=== PATIENT | female | born 1965 | race Caucasian/White ===

== ENCOUNTER 2023-08-11 22:45 | Emergency (ER) | payer OTHER, SELFPAY ==
[2023-08-11 22:47] VITALS: BP 145/82
--- NOTE | 2023-08-11 23:21 | ED.GENMED ---
History of Present Illness
General
Chief Complaint: Skin Problem
Source: patient
Exam Limitations: none
Time Seen by Provider: 08/11/23 23:13
Travel History
Have you had any contact with someone who has COVID-19?: No
Do you have any symptoms of coronavirus? Fever > 100 degrees, chills, cough, shortness of breath, sore throat, loss of taste or smell, muscle aches, or headache?: No
History of Present Illness
History of Present Illness:
57-year-old female with a rash that started this morning. Mostly arms trunk and back. Nonpruritic. No fever chills nonpainful. Patient was on antibiotics that she finished a few weeks ago for a bronchitis. She had a chest x-ray during this.
That was negative. She has no shortness of breath trouble breathing or swallowing currently.
Past History
Past History
ED Past Medical History: HTN, Other (Seasonal allergies) and Other (Possible COPD)
ED Past Surgical History: Other (Dental surgery)
Social History
Tobacco: Former smoker
Alcohol: None
Drug: None
Personal: Single
Living: with family
Employment: Employed
Family History
Family History: Other (Noncontributory)
Review of Systems
Review of Systems
All Other Systems: Not applicable
Constitutional: Denies fever
Respiratory: Reports cough; Denies trouble breathing
Phy Exam
Physical Exam
Physical Exam:
GENERAL: Alert and oriented in no apparent distress
EYE: Orbits normal.
NECK: Supple
ENT: Speech normal
CARDIAC: Regular rate and rhythm without any obvious murmurs.
LUNGS: Clear breath sounds,normal
NEUROLOGICAL: Alert and oriented , grossly non-focal
SKIN: Warm and dry, discrete mostly macular rash 5 to 1 cm in area of the arms chest and back. Blanching. No petechia or purpura.
MUSCULOSKELETAL: No edema,no deformity.Good color
PSYCH: Normal and appropriate interaction.
Course
Orders/Labs/Results
Orders:
Orders
08/11/23 23:20
Prednisone [Deltasone] 50 mg PO NOW STA
Vital Signs
Initial and Last Documented VS:
Initial Vital Signs
Temp Pulse Resp BP Pulse Ox
97.8 F 88 24 145/82 97
08/11/23 22:47 08/11/23 22:47 08/11/23 22:47 08/11/23 22:47 08/11/23 22:47
Last Documented Vital Signs
Temp Pulse Resp BP Pulse Ox
97.8 F 88 24 145/82 97
08/11/23 22:47 08/11/23 22:47 08/11/23 22:47 08/11/23 22:47 08/11/23 22:47
MDM/Problems Addressed
Differential Diagnosis Includes:
I am not convinced this is true hives. It does appear to be a possible drug rash or possible allergic rash. Patient is in no distress. No acute infectious issues. Will do a course of prednisone to follow-up. As for her cough this has been an
ongoing issue for months. Her lungs are clear she is in no respiratory distress. She states she had a chest x-ray for this that was negative. This was done recently.
*Pulse Oximetry
Patient hypoxic: no
*Critical Care Note
Total Time (30-74mins, 75-104mins- exclusive of procedures): Not Applicable
ED Attending Note
-
Portions of this chart may have been created with voice recognition software.� Occasional wrong word or��sound alike� substitutions may have occurred due to the inherent limitations of voice recognition software.
Discharge Plan
Departure
Patient Disposition: Home (Routine Discharge)
Date of Disposition: 08/11/23
Time of Disposition: 23:24
Patient with high blood pressure during this ER visit?: Yes
Discharge Problem:
Nonspecific rash, Ongoing cough
Instructions: Skin Rash (DC), Cough, Adult ED, BLOOD PRESSURE
Prescriptions:
New
prednisone 10 mg tablet
10 mg PO DAILY Qty: 20 0RF
Rx Instructions:
4 tablets day 1. Then 1 less tablet every other day until gone
No Action
ugfjglp-ayuajilphehnx-viuohopx [Excedrin Migraine] 1 TABLET tablet
1 tab PO QID PRN (Reason: headache)
valsartan-hydrochlorothiazide 1 EACH tablet
1 ea PO DAILY
Benadryl:
25 mg PO HS
ibuprofen 600 MG tablet
600 mg PO Q6HPRN PRN (Reason: pain) Qty: 20 0RF
doxycycline monohydrate 100 mg capsule
100 mg PO BID Qty: 20 1RF
ibuprofen 600 mg tablet
600 mg PO QID PRN (Reason: fever or pain) Qty: 20 0RF
mometasone [Nasonex 24hr Allergy] 50 mcg/actuation spray,non-aerosol
2 spray intranasal DAILY 3 Days Qty: 17 0RF
loratadine [Claritin] 10 mg tablet
10 mg PO DAILY 10 Days Qty: 10 0RF
diphenhydramine HCl [Benadryl] 25 mg capsule
25 mg PO TID PRN (Reason: itching) Qty: 20 0RF
Activity Restrictions/Additional Instructions:
Follow-up closely with your primary physician in the next 2 to 3 days
If the rash becomes itchy take Benadryl
Prednisone taper as directed
Return sooner with spreading rash fever or any other concerning symptoms
Interventions
Interventions:
*Risk Screen - Suicide Last Done: 08/11/23 22:47
*Neglect/Abuse Screening Last Done: 08/11/23 22:47
Discharge Date and Time
Print Language: ITALIAN
[2023-08-11] MEDS: DELTASONE 50 MG PO (23:29)
== END 2023-08-11 23:40 | disposition home or self-care (01) ==
LOC: EMR 22:45
PROVIDERS: EMERGENCY PHYSICIAN Emergency Medicine; FAMILY PHYSICIAN Family Medicine
DX: R21 Rash and other nonspecific skin eruption (principal); R05.9 Cough, unspecified; I10 Essential (primary) hypertension; Z87.891 Personal history of nicotine dependence
CPT/HCPCS: 99282

== ENCOUNTER → 2023-09-09 08:47 | Outpatient (REF) | payer OTHER, SELFPAY | LOC: RSP 08:47 | PROVIDERS: ATTENDING PHYSICIAN Family Medicine | DX: R06.02 Shortness of breath (principal) | CPT/HCPCS: 94727; 94729; 88738; 94010 ==

== ENCOUNTER 2023-09-18 22:20 | Emergency (ER) | payer OTHER, SELFPAY ==
[2023-09-18 22:23] VITALS: BP 156/81
--- NOTE | 2023-09-19 01:25 | ED.GENMED ---
History of Present Illness
General
Chief Complaint: Eye Problems
Source: patient
Time Seen by Provider: 09/19/23 01:16
History of Present Illness
History of Present Illness:
58-year-old female presents with right upper eyelid redness swelling and irritation starting yesterday. She states there is a bump there. She thinks she may have been bit by an insect. She denies any vision change. She notes it feels irritated
but denies any discharge. No other complaints at this time
Past History
Past History
ED Past Medical History: HTN, Other (Seasonal allergies) and Other (Possible COPD)
ED Past Surgical History: Other (Dental surgery)
Social History
Tobacco: Former smoker
Alcohol: None
Drug: None
Personal: Single
Living: with family
Employment: Employed
Family History
Family History: Other (Noncontributory)
Phy Exam
Physical Exam
Physical Exam:
General: Well-appearing female no acute respiratory distress
HEENT: Normocephalic atraumatic right eye examined. There is small area of erythema papule noted edge of the eyelid and the base of the eyelash. There is no discharge. Pupils equal round reactive to light surrounding skin is without swelling or
erythema eye motions are intact
Course
Orders/Labs/Results
Orders:
Orders
09/19/23 01:23
Gentamicin [Genoptic 0.3% Eye Drops] See Dose Instructions OPHTH NOW STA
Vital Signs
Initial and Last Documented VS:
Initial Vital Signs
Temp Pulse Resp BP Pulse Ox
98.4 F 89 18 156/81 98
09/18/23 22:23 09/18/23 22:23 09/18/23 22:23 09/18/23 22:23 09/18/23 22:23
Last Documented Vital Signs
Temp Pulse Resp BP Pulse Ox
98.4 F 89 18 156/81 98
09/18/23 22:23 09/18/23 22:23 09/18/23 22:23 09/18/23 22:23 09/18/23 22:23
MDM/Problems Addressed
Differential Diagnosis Includes:
Right upper eyelid irritation. Consider stye versus blepharitis versus foreign body versus insect bite
Exam most consistent with stye. Recommended continued warm compresses. Did prescribe gentamicin drops for coverage. No indication for any further intervention. Stable for discharge
*Critical Care Note
Total Time (30-74mins, 75-104mins- exclusive of procedures): Not Applicable
ED Attending Note
-
Portions of this chart may have been created with voice recognition software.� Occasional wrong word or��sound alike� substitutions may have occurred due to the inherent limitations of voice recognition software.
Discharge Plan
Departure
Patient Disposition: Home (Routine Discharge)
Date of Disposition: 09/19/23
Time of Disposition: 01:27
Patient with high blood pressure during this ER visit?: No
Discharge Problem:
Hordeolum externum (stye)
Instructions: Stye, How to Use Eye Drops
Prescriptions:
No Action
dpcnxio-usitngazzdyrs-hdbdszdb [Excedrin Migraine] 1 TABLET tablet
1 tab PO QID PRN (Reason: headache)
valsartan-hydrochlorothiazide 1 EACH tablet
1 ea PO DAILY
Benadryl:
25 mg PO HS
ibuprofen 600 MG tablet
600 mg PO Q6HPRN PRN (Reason: pain) Qty: 20 0RF
doxycycline monohydrate 100 mg capsule
100 mg PO BID Qty: 20 1RF
ibuprofen 600 mg tablet
600 mg PO QID PRN (Reason: fever or pain) Qty: 20 0RF
mometasone [Nasonex 24hr Allergy] 50 mcg/actuation spray,non-aerosol
2 spray intranasal DAILY 3 Days Qty: 17 0RF
loratadine [Claritin] 10 mg tablet
10 mg PO DAILY 10 Days Qty: 10 0RF
diphenhydramine HCl [Benadryl] 25 mg capsule
25 mg PO TID PRN (Reason: itching) Qty: 20 0RF
prednisone 10 mg tablet
10 mg PO DAILY Qty: 20 0RF
Rx Instructions:
4 tablets day 1. Then 1 less tablet every other day until gone
Referrals:
Rochelle Villeda PA [Family Provider] -
Activity Restrictions/Additional Instructions:
Continue with warm compresses several times a day. Use 1 drop every 4-6 hours into the right eye. Please return here for worsening symptoms otherwise follow-up with family doctor
Interventions
Interventions:
*General Assessment Last Done: 09/18/23 22:23
*ED COVID-19 Vaccine History Last Done: 09/18/23 22:23
Discharge Date and Time
Print Language: BULGARIAN
[2023-09-19] MEDS: GENOPTIC 0.3% EYE DROPS 1 DROP OPHTH (01:41)
== END 2023-09-19 01:43 | disposition home or self-care (01) ==
LOC: EMR 22:20
PROVIDERS: EMERGENCY PHYSICIAN Student in an Organized Health Care Education/Training Program; FAMILY PHYSICIAN Family Medicine
DX: H00.013 Hordeolum externum right eye, unspecified eyelid (principal); I10 Essential (primary) hypertension; Z87.891 Personal history of nicotine dependence
CPT/HCPCS: 99282

== ENCOUNTER → 2023-11-19 11:42 | Outpatient (REF) | payer OTHER, SELFPAY | LOC: WDC 11:42 | PROVIDERS: ATTENDING PHYSICIAN Family Medicine | DX: Z12.31 Encounter for screening mammogram for malignant neoplasm of breast (principal) | CPT/HCPCS: 77063; 77067 ==

== ENCOUNTER 2023-12-01 22:31 | Emergency (ER) | payer OTHER, SELFPAY ==
[2023-12-01 22:33] VITALS: BP 138/85
--- NOTE | 2023-12-02 00:21 | ED.MUSCINJ ---
HPI-Injury
<SEGUNDO Gunter - Last Filed: 12/02/23 00:50>
General
Chief Complaint: Musculo-Skeletal Complaint
Time Seen by Provider: 12/02/23 00:21
History of Present Illness-Injury
Initial Injury comments:
Patient is a 58 year old female presenting to the ED complaining of right foot pain. The pain started on Friday and Tylenol mildly alleviates symptoms. Patient can not remember doing anything specific that caused the pain. Pain is worse with
movement and described as a dull achy pain. Pain is rated a 5/10 on a pain scale and does not radiate anywhere. The pain is located in the middle of the 5th metatarsal and the patient denies any trauma. There is associated numbness and tingling that
is off and on and is localized to the right foot. Patient denies any chest pain sob palpitations swelling erythema trauma or tingling radiating throughout the right leg.
Patient has a PMH of 2 right foot fracture. There was a 2nd metatarsal fracture in December 2021 and a 5th metatarsal fracture in August 2023.
Past History
<SEGUNDO Gunter - Last Filed: 12/02/23 00:50>
Past History
ED Past Medical History: HTN, Other (Seasonal allergies) and Other (Possible COPD)
ED Past Surgical History: Other (Dental surgery)
Social History
Tobacco: Former smoker
Alcohol: None
Drug: None
Personal: Single
Living: with family
Employment: Employed
Family History
Family History: Other (Noncontributory)
Review of Systems
<SEGUNDO Gunter - Last Filed: 12/02/23 00:50>
Review of Systems
Constitutional: Reports no symptoms
Respiratory: Reports no symptoms
Cardiac: Reports no symptoms
Musculoskeletal: Reports joint pain
Neurological: Reports numbness
Phy Exam
<SEGUNDO Gunter - Last Filed: 12/02/23 00:50>
Cardiovascular Exam
Cardiovascular Exam: regular rate/rhythm, no edema, no gallop, no JVD and no murmur
<Kar Raphael DO - Last Filed: 12/02/23 00:51>
Physical Exam
Physical Exam:
Physical Exam
General: no apparent distress, not acutely ill
Heart: s1/s2 regular rate and rhythm, no murmur. equal radial pulses.
Lungs: no acute respiratory distress.
Neuro: alert and oriented. no focal neurological deficits
Skin: no rash
Psychiatric: well kept. interactive and cooperative
Extremities: Minimal tenderness over the metatarsals on the right foot
Injury Course
<SEGUNDO Gunter - Last Filed: 12/02/23 00:50>
Orders/Labs/Results
Orders:
Orders
12/01/23 22:35
CR Foot - Right Min 3 Views Urgent
Comment:
Reason For Exam: right foot pain lateral portion
12/02/23 00:49
Splints/Slings/Crut- Treatment ONCE
Acetaminophen [Tylenol] 650 mg PO NOW STA
<Kar Raphael DO - Last Filed: 12/02/23 00:51>
Orders/Labs/Results
Orders:
Orders
12/01/23 22:35
CR Foot - Right Min 3 Views Urgent
Comment:
Reason For Exam: right foot pain lateral portion
12/02/23 00:49
Splints/Slings/Crut- Treatment ONCE
Acetaminophen [Tylenol] 650 mg PO NOW STA
<SEGUNDO Gunter - Last Filed: 12/02/23 00:50>
MDM/Problems Addressed
Differential Diagnosis Includes:
Arthritis, metatarsal fracture
MDM/Problems Addressed:
Order xray of foot and give Tylenol for pain.
<SEGUNDO Gunter - Last Filed: 12/02/23 00:50>
*Critical Care Note
Total Time (30-74mins, 75-104mins- exclusive of procedures): Not Applicable
<Kar Raphael DO - Last Filed: 12/02/23 00:51>
*Radiology
Radiology exam reviewed: preliminary read by ED provider
*Pulse Oximetry
Patient hypoxic: no
ED Attending Note
<SEGUNDO Gunter - Last Filed: 12/02/23 00:50>
-
Portions of this chart may have been created with voice recognition software.� Occasional wrong word or��sound alike� substitutions may have occurred due to the inherent limitations of voice recognition software.
<Kar Raphael DO - Last Filed: 12/02/23 00:51>
ED Attending Note
Patient seen and examined by attending physician: Yes
ED Attending Note:
Seen with student examined independently 58-year-old female on her feet a lot at work at [employer] atraumatic right foot pain no crepitance no obvious lesions no warmth, x-ray noted no fracture seen will place in a hard soled shoe and prescribed
Tylenol, perhaps this is overuse or contusion
Discharge Plan
Departure
Patient Disposition: Home (Routine Discharge)
Date of Disposition: 12/02/23
Time of Disposition: 00:49
Patient with high blood pressure during this ER visit?: No
Condition: Good
Discharge Problem:
foot pain
Instructions: Muscle and Bone Pain (DC), Splint Care
Prescriptions:
No Action
fhikzxt-qshykwxyhvzab-rckufijc [Excedrin Migraine] 1 TABLET tablet
1 tab PO QID PRN (Reason: headache)
valsartan-hydrochlorothiazide 1 EACH tablet
1 ea PO DAILY
Benadryl:
25 mg PO HS
ibuprofen 600 MG tablet
600 mg PO Q6HPRN PRN (Reason: pain) Qty: 20 0RF
doxycycline monohydrate 100 mg capsule
100 mg PO BID Qty: 20 1RF
ibuprofen 600 mg tablet
600 mg PO QID PRN (Reason: fever or pain) Qty: 20 0RF
mometasone [Nasonex 24hr Allergy] 50 mcg/actuation spray,non-aerosol
2 spray intranasal DAILY 3 Days Qty: 17 0RF
loratadine [Claritin] 10 mg tablet
10 mg PO DAILY 10 Days Qty: 10 0RF
diphenhydramine HCl [Benadryl] 25 mg capsule
25 mg PO TID PRN (Reason: itching) Qty: 20 0RF
prednisone 10 mg tablet
10 mg PO DAILY Qty: 20 0RF
Rx Instructions:
4 tablets day 1. Then 1 less tablet every other day until gone
Referrals:
Naif Jay MD [Family Provider] -
Interventions
Interventions:
*Risk Screen - Suicide Last Done: 12/01/23 22:33
*General Assessment Last Done: 12/01/23 22:33
*Neglect/Abuse Screening Last Done: 12/01/23 22:33
Discharge Date and Time
Print Language: URDU
[2023-12-02 01:14] VITALS: BMI 35.3
[2023-12-02 01:17] VITALS: BP 130/77
[2023-12-02] MEDS: TYLENOL 650 MG PO (01:20)
== END 2023-12-02 01:30 | disposition home or self-care (01) ==
LOC: EMR 22:31
PROVIDERS: EMERGENCY PHYSICIAN Emergency Medicine; FAMILY PHYSICIAN Family Medicine
DX: M79.671 Pain in right foot (principal); I10 Essential (primary) hypertension; Z87.891 Personal history of nicotine dependence
CPT/HCPCS: 99283; 29515; 73630

== ENCOUNTER 2023-12-12 23:30 | Emergency (ER) | payer OTHER, SELFPAY ==
[2023-12-12 23:34] VITALS: BP 138/85; BP 138/95
--- NOTE | 2023-12-12 23:54 | ED.GENMED ---
History of Present Illness
General
Chief Complaint: Breathing Problem
Source: patient
Exam Limitations: none
Time Seen by Provider: 12/12/23 23:41
History of Present Illness
History of Present Illness:
This is 58 year old female that comes in with c/o COPD flare. States that the client solutions specialist want her to to Pulmonary rehab. States that she started this on Friday and she feels that this was just to much for her. States that by she
was not feeling good and feels that she has a COPD flare. State that she is SOB and it feels like someone is just squeezing her chest. States that she has increased mucous production and her throat is sore with all the coughing. States that she also
has a headache. Denies any fever, chills, chest pain, abd pain, nausea, vomiting, diarrhea, dizziness, urinary burning.
Past History
Past History
ED Past Medical History: Asthma, COPD, HTN, Hypercholesterolemia and Other (Seasonal allergies, Migraines, right foot fracture, )
ED Past Surgical History: Other (Dental surgery)
Social History
Tobacco: Former smoker
Alcohol: None
Drug: None
Personal: Single
Living: with family
Employment: Employed
Family History
Family History: Other (Noncontributory)
Review of Systems
Review of Systems
All Other Systems: ROS reviewed and negative except as documented in HPI and ROS
Constitutional: Reports no symptoms; Denies fever or chills
EENT: Reports no symptoms
Respiratory: Reports cough and trouble breathing
Cardiac: Reports no symptoms; Denies chest pain
ABD/GI: Reports no symptoms; Denies abdominal pain, nausea, vomiting or diarrhea
: Reports no symptoms; Denies dysuria, frequency or urgency
Musculoskeletal: Reports no symptoms
Skin: Reports no symptoms
Neurological: Reports headache; Denies dizzy
Psychiatric: Reports no symptoms
Phy Exam
General Physical Exam
General Presentation: no apparent distress
General age: appears stated age
General Skin: warm and dry
General Habitus: normal
General Mental: alert
General Hydration: appears well hydrated
ENT Exam
ENT Exam: TM's normal, pharynx normal and neck supple
Eye Exam
Eye Exam: EOMI
Cardiovascular Exam
Cardiovascular Exam: regular rate/rhythm, no edema and normal peripheral pulses
Pulmonary Exam
Pulmonary Exam: lungs clear (Posteriorly), no respiratory distress, no rales, chest non tender, no crackles, no rhonchi and other (Dry cough noted. Anterior faint wheezing noted. )
Gastrointestinal Exam
Gastrointestinal Exam: normal bowel sounds, non tender, soft, no organomegaly, no pulsatile mass and non distended
Musculoskeletal Exam
Musculoskeletal Exam: full ROM and no edema
Skin Exam
Skin Exam: normal color, warm/dry, no rash and no petechia
Psychiatric Exam
Psychiatric Exam: normal mood/affect
Scores
Heart Failure Risk
Heart Failure Risk Score: Not Applicable
Course
Orders/Labs/Results
Orders:
Orders
12/12/23 23:53
Complete Blood Count/With Diff Urgent
Comprehensive Metabolic Panel Urgent
Dexamethasone Sod Phosphate [Decadron] 20 mg IV NOW STA
Ipratropium/Albuterol Sulfate [Duoneb] 3 ml INH R NOW ONE
12/12/23 23:55
Electrocardiogram (*1) Urgent
Reason for Study: Shortness of Breath
EKG- Treatment ONCE
Troponin I Urgent
12/13/23 00:00
CR Chest - 2 Views Urgent
Reason For Exam: SOB, cough
Abnormal Lab Results
12/13/23
00:16
RBC 4.08 L 10^6/uL
(4.20-5.40)
Hct 34.8 L %
(37.0-47.0)
Abs Immat Gran (auto) 0.1 H 10^3/uL
(0-0.05)
Absolute Monos (auto) 0.8 H 10^3/uL
(0.1-0.6)
Immature Gran % 0.8 H %
(0-0.5)
Monocytes % 9.8 H %
(1.7-9.3)
Eosinophils % 7.4 H %
(0-6)
Glucose 114 H mg/dl
(70-99)
12/13/23 00:16
12/13/23 00:16
Glucose nonfasting. Otherwise labs normal. Troponin <0.012
Vital Signs
Initial and Last Documented VS:
Initial Vital Signs
Temp Pulse Resp BP Pulse Ox
99.7 F 92 28 138/85 97
12/12/23 23:34 12/12/23 23:34 12/12/23 23:34 12/12/23 23:34 12/12/23 23:34
Last Documented Vital Signs
Temp Pulse Resp BP Pulse Ox
97.7 F 85 16 123/68 96
12/13/23 00:21 12/13/23 01:07 12/13/23 01:07 12/13/23 01:07 12/13/23 01:07
MDM/Problems Addressed
Differential Diagnosis Includes:
COPD flare, PNA,
MDM/Problems Addressed:
This is a 58 year old female that comes in with c/o cough and SOB. State that it feels like someone is just squeezing her lungs. States that she went to Pulmonary rehab and she feels that it was just to much for her. States that on she
started to feel like she was having a flare.
Will check labs. Chest X-ray, Duo neb and steroids.
Back into see patient. Patient states that she feels better after the nebulizer but still feels some tightness. Explained to patient that her blood work is normal. Patient has been given IV steroid here and will place patient on a steroid for the
next 5 days. Patient will also be given a nebulizer to use at home with albuteral. Patient to follow up with the Family doctor or the client solutions specialist. Patient to return with any concerns.
Chronic conditions affecting care: COPD and Asthma
Acute Exacerbation and/or Progression of Chronic Illness: COPD and Asthma
*Radiology
Radiology exam reviewed: preliminary read by ED provider (Chest- Negative for active disease. )
*Pulse Oximetry
Patient hypoxic: no
*EKG
Interpreted by ED Provider?: Yes
Heart Rate: 79
Rate: normal
Rhythm: sinus
[place]: normal axis
Interval: normal interval
QRS Pattern: normal QRS
Ischemia: no ischemia
*Solar Energy Engineer Interpretation
Rate: Solar Energy Engineer- N/A
*Critical Care Note
Total Time (30-74mins, 75-104mins- exclusive of procedures): Not Applicable
ED Attending Note
-
Portions of this chart may have been created with voice recognition software.� Occasional wrong word or��sound alike� substitutions may have occurred due to the inherent limitations of voice recognition software.
Discharge Plan
Departure
Patient Disposition: Home (Routine Discharge)
Date of Disposition: 12/13/23
Time of Disposition: 01:11
Patient with high blood pressure during this ER visit?: No
Condition: Good
Covid-19: Not Applicable
Discharge Problem:
Wheezing, SOB (shortness of breath), Asthma
Instructions: Asthma, Adult (DC), Shortness of Breath (Dyspnea) (DC)
Prescriptions:
New
prednisone 20 mg tablet
40 mg PO DAILY Qty: 10 0RF
albuterol sulfate 2.5 mg /3 mL (0.083 %) solution for nebulization
2.5 mg inhalation Q4H PRN (Reason: shortness of breath or wheezing) Qty: 75 0RF
No Action
Excedrin Migraine 1 TABLET tablet
1 tab PO QID PRN (Reason: headache)
valsartan-hydrochlorothiazide 1 EACH tablet
1 ea PO DAILY
ibuprofen 600 MG tablet
600 mg PO Q6HPRN PRN (Reason: pain) Qty: 20 0RF
mometasone [Nasonex 24hr Allergy] 50 mcg/actuation spray,non-aerosol
2 spray intranasal DAILY 3 Days Qty: 17 0RF
loratadine [Claritin] 10 mg tablet
10 mg PO DAILY 10 Days Qty: 10 0RF
montelukast 10 mg Tablet
10 mg PO DAILY
albuterol sulfate 90 mcg/actuation Hfa Aerosol Inhaler
2 inh INHALATION QID
Trelegy Ellipta 200-62.5-25 mcg Blister With Device
1 inh INHALATION DAILY
simvastatin
1 tab PO DAILY
Patient Comments:
pt unsure of mg
cholecalciferol (vitamin D3) [Vitamin D3] 10 mcg (400 unit) Tablet
10 mcg PO BID
Referrals:
Naif Jay MD [Family Provider] - Follow up in 2-3 days
Activity Restrictions/Additional Instructions:
As discussed your blood work is normal. Your ECG is normal. This is most likely an exacerbation of your COPD/Asthma. You have been given IV steroids here that will help decrease the inflammation. You have also had a prescription for a steroid sent
to your pharmacy. Pleases take this daily as directed for the next 5 days. You have been given a Nebulizer to use at home for the wheezing and shortness of breath. The albuterol nebs prescription has been sent to your pharmacy. You may use this
every 4 hours as needed for wheezing or shortness of breath. Follow up with the family doctor for recheck in the next 2-3 days. IF YOU HAVE FEVER, INCREASED SHORTNESS OF BREATH, OR YOU HAVE ANY OTHER CONCERNS PLEASE RETURN TO THE EMERGENCY ROOM.
Interventions
Interventions:
*Risk Screen - Suicide Last Done: 12/12/23 23:34
*General Assessment Last Done: 12/13/23 00:00
*Neglect/Abuse Screening Last Done: 12/12/23 23:34
*ED COVID-19 Vaccine History Last Done: 12/12/23 23:34
*Nursing Disposition Last Done: 12/13/23 01:50
ED- Cardiac Assessment Last Done: 12/13/23 00:27
ED- Pulmonary Assessment Last Done: 12/13/23 00:27
Discharge Date and Time
Discharge Date/Time: 12/13/23 01:50
Print Language: CAPE VERDEAN
[2023-12-12 23:59] VITALS: BMI 35.4
[2023-12-13 00:19] VITALS: BP 124/65
[2023-12-13] MEDS: DECADRON 20 MG IV (00:19)
[2023-12-13] MEDS: DUONEB 3 ML INH (00:21)
--- NOTE | 2023-12-13 00:27 | EDRN ---
Pt says she has had chest tightness from coughing for 2 days. Pt came in to night because she thinks she is having a flare of copd and needs abx and steroids. Pt says she started copd rehab this week per her doctor and she does not think she can
do it because it caused this episode. Pt has sob at rest sometimes, more with exertion. Pt denies fever/chills, abd pain, n/v/d/c, weakness, dizziness, urinary symptoms.
[2023-12-13 00:49] LABS: ALT (SGPT) 28 U/L (0-35); AST (SGOT) 26 U/L (14-36); Albumin 4.4 g/dl (3.5-5.0); Alkaline Phosphatase 104 U/L (38-126); Blood Urea Nitrogen 14 mg/dl (7-17); Calcium 10.2 mg/dl (8.4-10.2); Carbon Dioxide 24 mmol/L (22-30); Chloride 101 mmol/L (98-107); Estimated Creatinine Clearance 63 ml/min; Glucose 114 mg/dl (70-99); Potassium 3.5 mmol/L (3.5-5.1); Sodium 138 mmol/L (135-145); Total Bilirubin 0.5 mg/dl (0.2-1.3); eGFR > 60.00
[2023-12-13 00:53] LABS: % Basophils 1.7 % (0-2); % Eosinophils 7.4 % (0-6); % Immature Granulocytes 0.8 % (0-0.5); % Lymphocytes 32.2 % (20.5-51.1); % Monocytes 9.8 % (1.7-9.3); % Neutrophils 48.1 % (42.2-75.2); Absolute Basophils 0.1 10^3/uL (0-0.2); Absolute Eosinophils 0.6 10^3/uL (0-0.7); Absolute Immature Granulocytes 0.1 10^3/uL (0-0.05); Absolute Lymphocytes 2.7 10^3/uL (1.2-3.4); Absolute Monocytes 0.8 10^3/uL (0.1-0.6); Hematocrit 34.8 % (37.0-47.0); Hemoglobin 12.4 g/dL (12.0-16.0); Mean Corp Hgb Conc. 35.6 g/dL (33.0-37.0); Mean Corpuscular Hgb 30.4 pg (27.0-31.0); Mean Corpuscular Volume 85.3 fL (81.0-99.0); Mean Platelet Volume 10.2 fL (7.4-10.4); Nucleated Red Blood Cells % 0 %; Platelet Count 347 10^3/uL (130-400); Red Blood Cell Count 4.08 10^6/uL (4.20-5.40); Red Cell Dist. Width 12.2 % (11.5-14.5); White Blood Cell Count 8.4 10^3/uL (4.8-10.8)
[2023-12-13 01:01] LABS: Troponin I < 0.012 ng/ml
[2023-12-13 01:07] VITALS: BP 123/68
--- NOTE | 2023-12-13 01:43 | EDRN ---
Pt given nebulizer machine with instructions on how to use. Pt able to show this RN how to use the nebulizer. All questions answered. Pt says she noted a big improvement after the nebulizer tx in the ED versus the inhaler she uses at home.
== END 2023-12-13 01:50 | disposition home or self-care (01) ==
LOC: EMR 23:30
PROVIDERS: Clinical Nurse Specialist Family Health; EMERGENCY PHYSICIAN Student in an Organized Health Care Education/Training Program; FAMILY PHYSICIAN Family Medicine
DX: J44.1 Chronic obstructive pulmonary disease with (acute) exacerbation (principal); R06.2 Wheezing; R06.02 Shortness of breath; J45.901 Unspecified asthma with (acute) exacerbation; R07.89 Other chest pain; R51.9 Headache, unspecified; I10 Essential (primary) hypertension; E78.00 Pure hypercholesterolemia, unspecified; G43.909 Migraine, unspecified, not intractable, without status migrainosus; Z87.891 Personal history of nicotine dependence; Z88.2 Allergy status to sulfonamides
CPT/HCPCS: 99284; 96374; 94640; 71046; 80053; 84484; 85025; 93005

== ENCOUNTER 2023-12-18 22:38 | Emergency (ER) | payer OTHER, SELFPAY ==
[2023-12-18 22:40] VITALS: BP 134/89
--- NOTE | 2023-12-18 23:04 | ED.GENMED ---
History of Present Illness
General
Chief Complaint: Musculo-Skeletal Complaint
Source: patient
Time Seen by Provider: 12/18/23 22:59
History of Present Illness
History of Present Illness:
58-year-old female presenting to the emergency department for evaluation of atraumatic left foot pain that started yesterday, continued into today, no relief with rest and elevation, has not taken anything else for the pain. Patient notes that she
has previous fracture to the right foot but no previous issues with the left. Denies any traumatic injuries. No other concerns at this time. Patient states that the pain is mainly along the lateral aspect of the foot around the fifth metatarsal.
Past History
Past History
ED Past Medical History: Asthma, COPD, HTN, Hypercholesterolemia and Other (Seasonal allergies, Migraines, right foot fracture, )
ED Past Surgical History: Other (Dental surgery)
Social History
Tobacco: Former smoker
Alcohol: None
Drug: None
Personal: Single
Living: with family
Employment: Employed
Family History
Family History: Other (Noncontributory)
Review of Systems
Review of Systems
All Other Systems: ROS reviewed and negative except as documented in HPI and ROS
Phy Exam
Physical Exam
Physical Exam:
GENERAL: Alert , in no apparent distress
EYE: conjunctiva clear
Head: Normocephalic atraumatic
NECK: Supple,
ENT: mmm.
LUNGS: no acute respiratory distress
NEUROLOGICAL: Alert and oriented
SKIN: Warm and dry, skin intact.
MUSCULOSKELETAL: Left lower extremity: No obvious erythema, edema, ecchymosis, abrasions or lacerations. Mild tenderness along the lateral aspect of the foot but no focal bony tenderness. Easily palpable pedal and tibial pulse. Cap refill less
than 2 seconds. No calf tenderness or edema.
PSYCH: Normal and appropriate interaction.
Scores
Heart Failure Risk
Heart Failure Risk Score: Not Applicable
Heart Score for Chest Pain Patients
STEMI patient?: Not applicable
Withdrawal Assessment of Alcohol
Withdrawal Assessment Completed?: Not applicable
Course
Orders/Labs/Results
Orders:
Orders
12/18/23 22:43
Foot, Left 3 View [CR Foot - Left Min 3 Views] Urgent
Comment: pain to lateral portion of foot
Reason For Exam: injured left foot yesterday
Vital Signs
Initial and Last Documented VS:
Initial Vital Signs
Temp Pulse Resp BP Pulse Ox
97.8 F 103 18 134/89 97
12/18/23 22:40 12/18/23 22:40 12/18/23 22:40 12/18/23 22:40 12/18/23 22:40
Last Documented Vital Signs
Temp Pulse Resp BP Pulse Ox
97.8 F 103 18 134/89 97
12/18/23 22:40 12/18/23 22:40 12/18/23 22:40 12/18/23 22:40 12/18/23 22:40
MDM/Problems Addressed
Differential Diagnosis Includes:
Plantar fasciitis, arthritis, less concern for fracture given no mechanism
MDM/Problems Addressed:
58-year-old female presenting to the emergency department for evaluation of atraumatic left foot pain x 1 day. Has not attempted any medications for relief and notes that she has been ambulatory. Patient denies any specific injury. History of
right-sided foot injury and still follows with the health education specialist for intermittent pain. X-ray ordered from triage. No fracture identified on the x-ray but there are some mild degenerative changes and a calcaneal spur. Advised NSAIDs/Tylenol as
needed for pain. Patient requesting an orthopedic shoe/postsurgical shoe. 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
*Radiology
Radiology exam reviewed: preliminary read by ED provider (No acute fracture. Degenerative changes and calcaneal spur)
*Pulse Oximetry
Patient hypoxic: no
*Critical Care Note
Total Time (30-74mins, 75-104mins- exclusive of procedures): Not Applicable
ED Attending Note
-
Portions of this chart may have been created with voice recognition software.� Occasional wrong word or��sound alike� substitutions may have occurred due to the inherent limitations of voice recognition software.
Discharge Plan
Departure
Patient Disposition: Home (Routine Discharge)
Date of Disposition: 12/18/23
Time of Disposition: 23:04
Patient with high blood pressure during this ER visit?: No
Discharge Problem:
Foot pain, left
Instructions: Metatarsalgia (DC)
Prescriptions:
No Action
Excedrin Migraine 1 TABLET tablet
1 tab PO QID PRN (Reason: headache)
valsartan-hydrochlorothiazide 1 EACH tablet
1 ea PO DAILY
ibuprofen 600 MG tablet
600 mg PO Q6HPRN PRN (Reason: pain) Qty: 20 0RF
mometasone [Nasonex 24hr Allergy] 50 mcg/actuation spray,non-aerosol
2 spray intranasal DAILY 3 Days Qty: 17 0RF
loratadine [Claritin] 10 mg tablet
10 mg PO DAILY 10 Days Qty: 10 0RF
montelukast 10 mg Tablet
10 mg PO DAILY
albuterol sulfate 90 mcg/actuation Hfa Aerosol Inhaler
2 inh INHALATION QID
Trelegy Ellipta 200-62.5-25 mcg Blister With Device
1 inh INHALATION DAILY
simvastatin
1 tab PO DAILY
Patient Comments:
pt unsure of mg
cholecalciferol (vitamin D3) [Vitamin D3] 10 mcg (400 unit) Tablet
10 mcg PO BID
prednisone 20 mg tablet
40 mg PO DAILY Qty: 10 0RF
albuterol sulfate 2.5 mg /3 mL (0.083 %) solution for nebulization
2.5 mg inhalation Q4H PRN (Reason: shortness of breath or wheezing) Qty: 75 0RF
Interventions
Interventions:
*Risk Screen - Suicide Last Done: 12/18/23 23:00
*General Assessment Last Done: 12/18/23 23:00
*Neglect/Abuse Screening Last Done: 12/18/23 23:00
ED- Fall Risk Assessment Last Done: 12/18/23 23:00
*ED COVID-19 Vaccine History Last Done: 12/18/23 23:00
*Nursing Disposition Last Done: 12/18/23 23:00
ED-Musculoskeletal Assessment Last Done: 12/18/23 23:00
Discharge Date and Time
Discharge Date/Time: 12/18/23 23:18
Print Language: TAJIK
== END 2023-12-18 23:18 | disposition home or self-care (01) ==
LOC: EMR 22:38
PROVIDERS: EMERGENCY PHYSICIAN Emergency Medicine; FAMILY PHYSICIAN Family Medicine
DX: M79.672 Pain in left foot (principal); Z87.891 Personal history of nicotine dependence
CPT/HCPCS: 99283; 73630

== ENCOUNTER 2024-03-07 15:39 | Emergency (ER) | payer OTHER, SELFPAY ==
[2024-03-07 15:41] VITALS: BP 112/82
[2024-03-07] MEDS: LOTRIMIN 1% CREAM 1 APPLIC TOPICAL (18:01)
[2024-03-07 18:06] VITALS: BP 109/74
--- NOTE | 2024-03-07 22:58 | ED.SKININJ ---
HPI-Injury
General
Chief Complaint: Skin Problem
Source: patient
Exam Limitations: none
Time Seen by Provider: 03/07/24 16:34
Nursing documentation reviewed up to this point in time: agreed with
History of Present Illness-Injury
Is this injury a work related problem?: No
Is pt an associate of [facility]?: No
Initial Injury comments:
Patient to ED with complaint of erythema, burning and itching to buttocks. Symptoms started a few weeks ago. She is concnerned for cellulitis. Denies feve/chills Brought self to ED for eval.
Past History
Past History
ED Past Medical History: Asthma, COPD, HTN, Hypercholesterolemia and Other (Seasonal allergies, Migraines, right foot fracture, )
ED Past Surgical History: Other (Dental surgery)
Social History
Tobacco: Former smoker
Alcohol: None
Drug: None
Personal: Single
Living: with family
Employment: Employed
Family History
Family History: Other (Noncontributory)
Review of Systems
Review of Systems
Allergies reviewed?: Yes
All Other Systems: ROS reviewed and negative except as documented in HPI and ROS
Constitutional: Reports no symptoms
EENT: Reports no symptoms
Respiratory: Reports no symptoms
Cardiac: Reports no symptoms
ABD/GI: Reports no symptoms
: Reports no symptoms
Musculoskeletal: Reports no symptoms
Skin: Reports rash (buttocks. COmplains of itching and burning)
Neurological: Reports no symptoms
Psychiatric: Reports no symptoms
Phy Exam
General Physical Exam
General Presentation: well appearing and no apparent distress
General age: appears stated age
General Skin: warm and dry
General Habitus: normal
Musculoskeletal Exam
Musculoskeletal Exam: full ROM and neuro vasc intact
Skin Exam
Skin Exam: no rash (diffuse erythema, scaling, raised edges concerning for tinea infection)
Psychiatric Exam
Psychiatric Exam: normal mood/affect
Course
Orders/Labs/Results
Orders:
Orders
03/07/24 17:38
Clotrimazole [Lotrimin 1% Cream] See Dose Instructions TOPICAL NOW STA
Vital Signs
Initial and Last Documented VS:
Initial Vital Signs
Temp Pulse Resp BP Pulse Ox
98.8 F 98 16 112/82 100
03/07/24 15:41 03/07/24 15:41 03/07/24 15:41 03/07/24 15:41 03/07/24 15:41
Last Documented Vital Signs
Temp Pulse Resp BP Pulse Ox
98.8 F 82 17 109/74 98
03/07/24 15:41 03/07/24 18:06 03/07/24 17:51 03/07/24 18:06 03/07/24 17:51
*Critical Care Note
Total Time (30-74mins, 75-104mins- exclusive of procedures): Not Applicable
Update Note
Update Note:
Patient to ED with red itchy rash to buttocks and inner thighs. On exam erythema is diffuse. Edges of rash are raised. No discharge. Scaly appearing rash concerning for tinea. Placed on Lotromin cream bid. Will follow up with PCP. Given
instructions on s/s to return to ED and she is agreeable to plan.
ED Attending Note
-
Portions of this chart may have been created with voice recognition software.� Occasional wrong word or��sound alike� substitutions may have occurred due to the inherent limitations of voice recognition software.
Discharge Plan
Departure
Patient Disposition: Home (Routine Discharge)
Date of Disposition: 03/07/24
Time of Disposition: 17:08
Patient with high blood pressure during this ER visit?: No
Condition: Good
Covid-19: Not Applicable
Discharge Problem:
Tinea corporis
Instructions: Fungal Skin Rash ED
Prescriptions:
New
clotrimazole 1 % cream
1 applic topical BID 28 Days Qty: 30 1RF
No Action
Excedrin Migraine 1 TABLET tablet
1 tab PO QID PRN (Reason: headache)
valsartan-hydrochlorothiazide 1 EACH tablet
1 ea PO DAILY
ibuprofen 600 MG tablet
600 mg PO Q6HPRN PRN (Reason: pain) Qty: 20 0RF
mometasone [Nasonex 24hr Allergy] 50 mcg/actuation spray,non-aerosol
2 spray intranasal DAILY 3 Days Qty: 17 0RF
loratadine [Claritin] 10 mg tablet
10 mg PO DAILY 10 Days Qty: 10 0RF
montelukast 10 mg Tablet
10 mg PO DAILY
albuterol sulfate 90 mcg/actuation Hfa Aerosol Inhaler
2 inh INHALATION QID
Trelegy Ellipta 200-62.5-25 mcg Blister With Device
1 inh INHALATION DAILY
simvastatin
1 tab PO DAILY
Patient Comments:
pt unsure of mg
cholecalciferol (vitamin D3) [Vitamin D3] 10 mcg (400 unit) Tablet
10 mcg PO BID
prednisone 20 mg tablet
40 mg PO DAILY Qty: 10 0RF
albuterol sulfate 2.5 mg /3 mL (0.083 %) solution for nebulization
2.5 mg inhalation Q4H PRN (Reason: shortness of breath or wheezing) Qty: 75 0RF
Referrals:
Naif Jay MD [Family Provider] - Follow up in 2-3 days
Interventions
Interventions:
*Risk Screen - Suicide Last Done: 03/07/24 15:41
*General Assessment Last Done: 03/07/24 15:41
*Neglect/Abuse Screening Last Done: 03/07/24 15:41
*ED COVID-19 Vaccine History Last Done: 03/07/24 15:41
*Nursing Disposition Last Done: 03/07/24 18:08
ED-Skin Assessment Last Done: 03/07/24 17:50
Discharge Date and Time
Discharge Date/Time: 03/07/24 18:08
Print Language: GREENLANDIC
== END 2024-03-07 18:08 | disposition home or self-care (01) ==
LOC: EMR 15:39
PROVIDERS: EMERGENCY PHYSICIAN Emergency Medicine; FAMILY PHYSICIAN Family Medicine
DX: B35.4 Tinea corporis (principal); J44.89 Other specified chronic obstructive pulmonary disease; I10 Essential (primary) hypertension; E78.00 Pure hypercholesterolemia, unspecified; Z87.891 Personal history of nicotine dependence
CPT/HCPCS: 99282

== ENCOUNTER 2024-07-14 15:23 | Emergency (ER) | payer OTHER, SELFPAY ==
[2024-07-14 15:24] VITALS: BP 123/83
--- NOTE | 2024-07-14 16:52 | ED.GENMED ---
History of Present Illness
General
Chief Complaint: Musculo-Skeletal Complaint
Source: patient
Exam Limitations: none
Time Seen by Provider: 07/14/24 16:19
Nursing documentation reviewed up to this point in time: agreed with
History of Present Illness
History of Present Illness:
Patient is a 58 [id number]-[id number][place]vzy female who sprained her finger in a [employer] about a week ago. Patient complains of soreness and swelling to left fourth finger. She is left-hand dominant. She does complain of mild discomfort when she bends
at that she is able to fully bend and extend. Denies any other injuries.
Past History
Past History
ED Past Medical History: Asthma, COPD, HTN, Hypercholesterolemia and Other (Seasonal allergies, Migraines, right foot fracture, )
ED Past Surgical History: Other (Dental surgery)
Social History
Tobacco: Former smoker
Alcohol: None
Drug: None
Personal: Single
Living: with family
Employment: Employed
Family History
Family History: Other (Noncontributory)
Review of Systems
Review of Systems
Allergies reviewed?: Yes
All Other Systems: ROS reviewed and negative except as documented in HPI and ROS
Constitutional: Reports no symptoms
Musculoskeletal: Reports other (left 4th finger pain/injury )
Skin: Reports no symptoms
Psychiatric: Reports no symptoms
Phy Exam
General Physical Exam
General Presentation: no apparent distress
General age: appears stated age
General Skin: warm and dry
General Habitus: normal
General Mental: alert
General Hydration: appears well hydrated
Neurological Exam
Neurological Exam: alert and oriented x3
Musculoskeletal Exam
Musculoskeletal Exam: other (LUE with strong pulses + mild swelling to left fourth finger; no bony tenderness able to flex and extend, normal cap refill no ecchymosis abrasions)
Skin Exam
Skin Exam: normal color and warm/dry
Psychiatric Exam
Psychiatric Exam: normal mood/affect
Course
Orders/Labs/Results
Orders:
Orders
07/14/24 15:27
Finger(s)/Thumb 2 View Lt [CR Finger(s)/thumb Min 2 Vw Lt] Urgent
Comment:
Reason For Exam: 4th digit pain
Indicate Which Finger:: Ring Finger
Vital Signs
Initial and Last Documented VS:
Initial Vital Signs
Temp Pulse Resp BP Pulse Ox
98.2 F 96 16 123/83 99
07/14/24 15:24 07/14/24 15:24 07/14/24 15:24 07/14/24 15:24 07/14/24 15:24
Last Documented Vital Signs
Temp Pulse Resp BP Pulse Ox
98.2 F 96 16 123/83 99
07/14/24 15:24 07/14/24 15:24 07/14/24 15:24 07/14/24 15:24 07/14/24 15:24
MDM/Problems Addressed
Differential Diagnosis Includes:
Not limited sprain strain dislocation fracture
MDM/Problems Addressed:
Symptoms are consistent with finger sprain. Patient has good flexion extension normal sensation minimal swelling no bony tenderness on exam.
Will place an aluminum foam splint for support discussed Motrin as needed
*Radiology
Radiology exam reviewed: radiology read reviewed
*Critical Care Note
Total Time (30-74mins, 75-104mins- exclusive of procedures): Not Applicable
ED Attending Note
-
Portions of this chart may have been created with voice recognition software.� Occasional wrong word or��sound alike� substitutions may have occurred due to the inherent limitations of voice recognition software.
Discharge Plan
Departure
Patient Disposition: Home (Routine Discharge)
Date of Disposition: 07/14/24
Time of Disposition: 17:03
Patient with high blood pressure during this ER visit?: No
Condition: Fair
Covid-19: Not Applicable
Discharge Problem:
Finger sprain
Instructions: Finger Sprain (DC)
Prescriptions:
No Action
Excedrin Migraine 1 TABLET tablet
1 tab PO QID PRN (Reason: headache)
valsartan-hydrochlorothiazide 1 EACH tablet
1 ea PO DAILY
ibuprofen 600 MG tablet
600 mg PO Q6HPRN PRN (Reason: pain) Qty: 20 0RF
mometasone [Nasonex 24hr Allergy] 50 mcg/actuation spray,non-aerosol
2 spray intranasal DAILY 3 Days Qty: 17 0RF
loratadine [Claritin] 10 mg tablet
10 mg PO DAILY 10 Days Qty: 10 0RF
montelukast 10 mg Tablet
10 mg PO DAILY
albuterol sulfate 90 mcg/actuation Hfa Aerosol Inhaler
2 inh INHALATION QID
Trelegy Ellipta 200-62.5-25 mcg Blister With Device
1 inh INHALATION DAILY
simvastatin
1 tab PO DAILY
Patient Comments:
pt unsure of mg
cholecalciferol (vitamin D3) [Vitamin D3] 10 mcg (400 unit) Tablet
10 mcg PO BID
prednisone 20 mg tablet
40 mg PO DAILY Qty: 10 0RF
albuterol sulfate 2.5 mg /3 mL (0.083 %) solution for nebulization
2.5 mg inhalation Q4H PRN (Reason: shortness of breath or wheezing) Qty: 75 0RF
clotrimazole 1 % cream
1 applic topical BID 28 Days Qty: 30 1RF
Referrals:
Naif Jay MD [Family Provider] -
Bebeto Sanford MD [Active] -
Activity Restrictions/Additional Instructions:
You may wear aluminum splint for support remove as discussed however several times a day and do gentle range of motion. You take ibuprofen if needed follow-up with your family doctor the next 2 days return if any worsening of symptoms. Follow-up
with hand specialist if needed
Interventions
Interventions:
*Risk Screen - Suicide Last Done: 07/14/24 15:24
*Neglect/Abuse Screening Last Done: 07/14/24 15:24
*ED- Fall Risk Assessment Last Done: 07/14/24 15:24
Discharge Date and Time
Print Language: KOREAN
[2024-07-14 16:56] VITALS: BMI 35.7
== END 2024-07-14 17:23 | disposition home or self-care (01) ==
LOC: EMR 15:23
PROVIDERS: EMERGENCY PHYSICIAN Student in an Organized Health Care Education/Training Program; FAMILY PHYSICIAN Family Medicine
DX: S63.615A Unspecified sprain of left ring finger, initial encounter (principal); X58.XXXA Exposure to other specified factors, initial encounter; E78.00 Pure hypercholesterolemia, unspecified; I10 Essential (primary) hypertension; J44.89 Other specified chronic obstructive pulmonary disease; Z87.891 Personal history of nicotine dependence
CPT/HCPCS: 29130; 99283; 73140

== ENCOUNTER 2024-09-05 10:49 | Emergency (ER) | payer OTHER, SELFPAY ==
[2024-09-05 10:56] VITALS: BP 119/78
--- NOTE | 2024-09-05 11:41 | ED.GENMED ---
History of Present Illness
General
Chief Complaint: Breathing Problem
Source: patient
Exam Limitations: none
Time Seen by Provider: 09/05/24 11:22
History of Present Illness
History of Present Illness:
59-year-old female COPD no longer smoking asthma on inhalers not on chronic steroids not on oxygen, works at [employer] think she was exposed to some warm air fumes, presents with cough productive sputum no fever has having wheezing no chest pain
no leg edema
Past History
Past History
ED Past Medical History: Asthma, COPD, HTN, Hypercholesterolemia and Other (Seasonal allergies, Migraines, right foot fracture, )
ED Past Surgical History: Other (Dental surgery)
Social History
Tobacco: Former smoker
Alcohol: None
Drug: None
Personal: Single
Living: with family
Employment: Employed
Family History
Family History: Other (Noncontributory)
Review of Systems
Review of Systems
All Other Systems: Not applicable
Constitutional: Denies fever or fatigue
Respiratory: Reports cough and trouble breathing
Cardiac: Reports no symptoms
ABD/GI: Reports no symptoms
: Reports no symptoms
Musculoskeletal: Reports no symptoms
Endocrine: Reports no symptoms
Hematologic/Lymphatic: Reports no symptoms
Phy Exam
Physical Exam
Physical Exam:
Physical Exam
General: 59 female with dyspneic appearing but nontoxic
Neck: No jaundice
Heart: s1/s2 regular rate and rhythm, no murmur. equal radial pulses.
Lungs: Expiratory wheeze
Abdomen: Not tender
Neuro: alert and oriented. no focal neurological deficits
Skin: no rash
Psychiatric: well kept. interactive and cooperative
Extremities: no edema. no calf tenderness.
Scores
Heart Failure Risk
Heart Failure Risk Score: Not Applicable
Course
Orders/Labs/Results
Orders:
Orders
09/05/24 11:32
Chest [CR Chest - 2 Views ] Urgent
Comment:
Reason For Exam: SOB
09/05/24 11:36
Electrocardiogram (*1) Stat
Reason for Study: Other
Other Reason for Exam: pneumonia
EKG- Treatment ONCE
Doxycycline [Vibramycin] 100 mg PO NOW STA
Ipratropium/Albuterol Sulfate [Duoneb] 3 ml INH R NOW STA
Prednisone [Deltasone] 50 mg PO NOW STA
Vital Signs
Initial and Last Documented VS:
Initial Vital Signs
Temp Pulse Resp BP Pulse Ox
98.6 F 94 18 119/78 96
09/05/24 10:56 09/05/24 10:56 09/05/24 10:56 09/05/24 10:56 09/05/24 10:56
Last Documented Vital Signs
Temp Pulse Resp BP Pulse Ox
98.6 F 94 18 119/78 96
09/05/24 10:56 09/05/24 10:56 09/05/24 10:56 09/05/24 10:56 09/05/24 11:43
MDM/Problems Addressed
Differential Diagnosis Includes:
COPD bronchitis pneumonia asthma conceivably heart failure
MDM/Problems Addressed:
Shortness of breath
Chronic conditions affecting care:
COPD asthma
Chronic conditions affecting care: COPD and Asthma
Acute Exacerbation and/or Progression of Chronic Illness: COPD and Asthma
*Radiology
Radiology exam reviewed: preliminary read by ED provider
*Pulse Oximetry
SaO2: 96
Oxygen Mode of Delivery: Room air
Patient hypoxic: no
*Critical Care Note
Total Time (30-74mins, 75-104mins- exclusive of procedures): Not Applicable
Update Note
Update Note:
12:45 PM chest x-ray noted patient states she is feeling much better no longer wheezing respiratory rate is normalized,
ED Attending Note
-
Portions of this chart may have been created with voice recognition software.� Occasional wrong word or��sound alike� substitutions may have occurred due to the inherent limitations of voice recognition software.
Discharge Plan
Departure
Patient Disposition: Home (Routine Discharge)
Date of Disposition: 09/05/24
Time of Disposition: 12:49
Patient with high blood pressure during this ER visit?: No
Condition: Good
Discharge Problem:
Acute bronchitis
Instructions: Exacerbation of COPD (DC)
Prescriptions:
New
prednisone 50 mg tablet
50 mg PO DAILY Qty: 5 0RF
albuterol sulfate [Ventolin HFA] 90 mcg/actuation HFA aerosol inhaler
2 inh inhalation Q6H PRN (Reason: shortness of breath or wheezing) Qty: 8.5 2RF
doxycycline hyclate 100 mg tablet
100 mg PO BID 7 Days Qty: 14 0RF
No Action
Excedrin Migraine 1 TABLET tablet
1 tab PO QID PRN (Reason: headache)
valsartan-hydrochlorothiazide 1 EACH tablet
1 ea PO DAILY
ibuprofen 600 MG tablet
600 mg PO Q6HPRN PRN (Reason: pain) Qty: 20 0RF
mometasone [Nasonex 24hr Allergy] 50 mcg/actuation spray,non-aerosol
2 spray intranasal DAILY 3 Days Qty: 17 0RF
loratadine [Claritin] 10 mg tablet
10 mg PO DAILY 10 Days Qty: 10 0RF
montelukast 10 mg Tablet
10 mg PO DAILY
albuterol sulfate 90 mcg/actuation Hfa Aerosol Inhaler
2 inh INHALATION QID
Trelegy Ellipta 200-62.5-25 mcg Blister With Device
1 inh INHALATION DAILY
simvastatin
1 tab PO DAILY
Patient Comments:
pt unsure of mg
cholecalciferol (vitamin D3) [Vitamin D3] 10 mcg (400 unit) Tablet
10 mcg PO BID
prednisone 20 mg tablet
40 mg PO DAILY Qty: 10 0RF
albuterol sulfate 2.5 mg /3 mL (0.083 %) solution for nebulization
2.5 mg inhalation Q4H PRN (Reason: shortness of breath or wheezing) Qty: 75 0RF
clotrimazole 1 % cream
1 applic topical BID 28 Days Qty: 30 1RF
Referrals:
Naif Jay MD [Family Provider, Family Practice] - Next open appointment
Interventions
Interventions:
*Risk Screen - Suicide Last Done: 09/05/24 11:01
*General Assessment Last Done: 09/05/24 11:01
*Neglect/Abuse Screening Last Done: 09/05/24 11:01
*ED- Fall Risk Assessment Last Done: 09/05/24 11:31
*ED COVID-19 Vaccine History Last Done: 09/05/24 11:31
ED- Cardiac Assessment Last Done: 09/05/24 11:31
ED- Pulmonary Assessment Last Done: 09/05/24 11:31
Discharge Date and Time
Print Language: [id number]
[2024-09-05] MEDS: DUONEB 3 ML INH (11:51)
[2024-09-05] MEDS: VIBRAMYCIN 100 MG PO (11:51)
[2024-09-05] MEDS: DELTASONE 50 MG PO (11:51)
== END 2024-09-05 13:23 | disposition home or self-care (01) ==
LOC: EMR 10:49
PROVIDERS: EMERGENCY PHYSICIAN Emergency Medicine; FAMILY PHYSICIAN Family Medicine
DX: J20.9 Acute bronchitis, unspecified (principal); I10 Essential (primary) hypertension; E78.00 Pure hypercholesterolemia, unspecified; J44.0 Chronic obstructive pulmonary disease with (acute) lower respiratory infection; G43.909 Migraine, unspecified, not intractable, without status migrainosus; Z87.891 Personal history of nicotine dependence; Z88.2 Allergy status to sulfonamides
CPT/HCPCS: 99283; 94640; 71046; 93005

== ENCOUNTER → 2024-11-24 10:59 | Outpatient (REF) | payer OTHER, SELFPAY | LOC: WDC 10:59 | PROVIDERS: ATTENDING PHYSICIAN Family Medicine | DX: Z12.31 Encounter for screening mammogram for malignant neoplasm of breast (principal) | CPT/HCPCS: 77063; 77067 ==

== ENCOUNTER 2025-01-01 12:30 | Emergency (ER) | payer OTHER, SELFPAY ==
[2025-01-01 12:53] VITALS: BP 114/74
--- NOTE | 2025-01-01 14:44 | ED.MUSCINJ ---
HPI-Injury
General
Chief Complaint: Musculo-Skeletal Complaint
Source: patient
Exam Limitations: none
Time Seen by Provider: 01/01/25 14:35
Nursing documentation reviewed up to this point in time: agreed with
History of Present Illness-Injury
Initial Injury comments:
59-year-old female with history of COPD, HTN, HLD states at 430 yesterday she was getting her car towed, she reached up with her left arm to hold onto a handle to voice herself up into the tow truck. She felt no pain or discomfort initially but
later that evening developed pain in the left upper arm as well as limited range of motion. She denies numbness or tingling or weakness in the arm.
Past History
Past History
ED Past Medical History: Asthma, COPD, HTN, Hypercholesterolemia and Other (Seasonal allergies, Migraines, right foot fracture, )
ED Past Surgical History: Other (Dental surgery)
Social History
Tobacco: Former smoker
Alcohol: None
Drug: None
Personal: Single
Living: with family
Employment: Employed
Family History
Family History: Other (Noncontributory)
Review of Systems
Review of Systems
Allergies reviewed?: Yes
All Other Systems: ROS reviewed and negative except as documented in HPI and ROS
Phy Exam
Physical Exam
Physical Exam:
PHYSICAL EXAMINATION:
General: no apparent distress, not acutely ill
Neuro: alert and oriented.
Psychiatric: well kept. interactive and cooperative
Pulmonary: Lungs CTA
Cardiac: RRR
Musculoskeletal: Moves with ease. Tender to palpate left upper extremity over the soft tissue/deltoid muscles. No swelling noted no discoloration. Mildly limited range of motion, can abduct the arm to 90 degrees for too
painful. No significant tenderness about the shoulder/clavicle area, elbow and forearm are nontender.
Skin: Warm, pink.
Injury Course
Orders/Labs/Results
Orders:
Orders
01/01/25 12:57
CR Shoulder - Left Min 2 View* Urgent
Comment:
Reason For Exam: Arm injury, pain, limited ROM
MDM/Problems Addressed
MDM/Problems Addressed:
59-year-old female with history of COPD, HTN, HLD states at 430 yesterday she was getting her car towed, she reached up with her left arm to hold onto a handle to voice herself up into the tow truck. She felt no pain or discomfort initially but
later that evening developed pain in the left upper arm as well as limited range of motion. She denies numbness or tingling or weakness in the arm.
X-ray left shoulder initially read by this examiner, no bony abnormality noted.
Patient with mildly limited range of motion of the arm, soft tissue tenderness only, no significant bony tenderness. Distal neurovascular intact
History and exam is consistent with a muscle strain of the left upper arm
*Pulse Oximetry
SaO2: 97
Oxygen Mode of Delivery: Room air
Patient hypoxic: not evaluated
*Critical Care Note
Total Time (30-74mins, 75-104mins- exclusive of procedures): Not Applicable
ED Attending Note
-
Portions of this chart may have been created with voice recognition software.� Occasional wrong word or��sound alike� substitutions may have occurred due to the inherent limitations of voice recognition software.
Discharge Plan
Departure
Patient Disposition: Home (Routine Discharge)
Date of Disposition: 01/01/25
Time of Disposition: 14:48
Patient with high blood pressure during this ER visit?: No
Condition: Good
Discharge Problem:
Muscle strain of left upper arm
Instructions: Muscle Strain (DC), Using Cold for Pain
Prescriptions:
No Action
Excedrin Migraine 1 TABLET tablet
1 tab PO QID PRN (Reason: headache)
valsartan-hydrochlorothiazide 1 EACH tablet
1 ea PO DAILY
ibuprofen 600 MG tablet
600 mg PO Q6HPRN PRN (Reason: pain) Qty: 20 0RF
mometasone [Nasonex 24hr Allergy] 50 mcg/actuation spray,non-aerosol
2 spray intranasal DAILY 3 Days Qty: 17 0RF
loratadine [Claritin] 10 mg tablet
10 mg PO DAILY 10 Days Qty: 10 0RF
montelukast 10 mg Tablet
10 mg PO DAILY
albuterol sulfate 90 mcg/actuation Hfa Aerosol Inhaler
2 inh INHALATION QID
Trelegy Ellipta 200-62.5-25 mcg Blister With Device
1 inh INHALATION DAILY
simvastatin
1 tab PO DAILY
Patient Comments:
pt unsure of mg
cholecalciferol (vitamin D3) [Vitamin D3] 10 mcg (400 unit) Tablet
10 mcg PO BID
prednisone 20 mg tablet
40 mg PO DAILY Qty: 10 0RF
albuterol sulfate 2.5 mg /3 mL (0.083 %) solution for nebulization
2.5 mg inhalation Q4H PRN (Reason: shortness of breath or wheezing) Qty: 75 0RF
clotrimazole 1 % cream
1 applic topical BID 28 Days Qty: 30 1RF
prednisone 50 mg tablet
50 mg PO DAILY Qty: 5 0RF
albuterol sulfate [Ventolin HFA] 90 mcg/actuation HFA aerosol inhaler
2 inh inhalation Q6H PRN (Reason: shortness of breath or wheezing) Qty: 8.5 2RF
doxycycline hyclate 100 mg tablet
100 mg PO BID 7 Days Qty: 14 0RF
Referrals:
Naif Jay MD [Family Provider, Family Practice] - As needed
Stand Alone Forms: Return to Work
Activity Restrictions/Additional Instructions:
As we discussed, Tylenol or ibuprofen as needed for pain. Cool compress to the area 20 minutes off-and-on today and tomorrow is much as she can.
Limit use of the left arm until it feels better
See your doctor in 2 weeks if is not significantly improved by then
Interventions
Interventions:
*Risk Screen - Suicide Last Done: 01/01/25 12:53
*Neglect/Abuse Screening Last Done: 01/01/25 14:30
*Nursing Disposition Last Done: 01/01/25 15:17
ED-Musculoskeletal Assessment Last Done: 01/01/25 14:30
Discharge Date and Time
Discharge Date/Time: 01/01/25 15:18
Print Language: MOROCCAN
== END 2025-01-01 15:18 | disposition home or self-care (01) ==
LOC: EMR 12:30
PROVIDERS: EMERGENCY PHYSICIAN Emergency Medicine; FAMILY PHYSICIAN Family Medicine
DX: S46.912A Strain of unspecified muscle, fascia and tendon at shoulder and upper arm level, left arm, initial encounter (principal); E78.00 Pure hypercholesterolemia, unspecified; I10 Essential (primary) hypertension; J44.89 Other specified chronic obstructive pulmonary disease; Z87.891 Personal history of nicotine dependence
CPT/HCPCS: 99283; 73030